=== PATIENT | male | born 1965 | race Caucasian/White ===

== ENCOUNTER → 2020-08-02 | Day surgery (SDC) | payer OTHER ==
[~2020-08-02] MED LIST: DOXYCYCLINE HY100 MG PO; FENTANYL CITRATE/PF 100MCG/2 ML INJ ONE; GLUCAGON FOR INJ 1 MG VIAL ONE; HYOSCYAMINE 0.125 MG TAB ONE; HYOSCYAMINE SULFATE 0.5 MG/ML INJ ONE; LEVOCETIRIZINE D5 MG PO; LIDOCAINE HCL 2% LOCAL INJ 5 ML SDV VIAL INJ ONE; MIDAZOLAM HCL 2 MG/2 ML VIAL ONE; OMEPRAZOLE40 MG PO; PROPOFOL IV EMULSION 10 MG/ML 20 ML VIAL ONE
[2020-08-02 09:36] VITALS: BP 101/73
== END | disposition home or self-care (01) ==
LOC: OR 05:54
PROVIDERS: ATTEND Internal Medicine Gastroenterology
DX: Z12.11 Encounter for screening for malignant neoplasm of colon (principal); D12.2 Benign neoplasm of ascending colon; D12.5 Benign neoplasm of sigmoid colon; K57.30 Diverticulosis of large intestine without perforation or abscess without bleeding; K50.90 Crohn's disease, unspecified, without complications; K64.8 Other hemorrhoids; K21.9 Gastro-esophageal reflux disease without esophagitis; M54.2 Cervicalgia; M54.9 Dorsalgia, unspecified; F17.290 Nicotine dependence, other tobacco product, uncomplicated; Z01.810 Encounter for preprocedural cardiovascular examination; Z01.812 Encounter for preprocedural laboratory examination; Z20.828 Contact with and (suspected) exposure to other viral communicable diseases; Z86.73 Personal history of transient ischemic attack (TIA), and cerebral infarction without residual deficits
CPT/HCPCS: 45380; 45384; 45385; 93005; J1610; J1980; J2001; J2250; J2704; J3010; U0002; 45378